=== PATIENT | female | born 1965 | race Caucasian/White ===

== ENCOUNTER 2023-02-19 15:30 | Outpatient (CLI) | payer BC, SELFPAY ==
[2023-02-19 15:55] VITALS: BP 129/75; PULSE 76; RESP 16
[2023-02-19 16:15] VITALS: BP 121/72; PULSE 70; RESP 16
== END 2023-02-19 16:25 | disposition home or self-care (01) ==
LOC: INF 15:32
PROVIDERS: PCP Family Medicine; Visit Provider Internal Medicine Medical Oncology
DX: K91.2 Postsurgical malabsorption, not elsewhere classified (principal); D50.8 Other iron deficiency anemias
CPT/HCPCS: 96374; Q0138

== ENCOUNTER 2023-02-24 09:53 | Outpatient (CLI) | payer BC, SELFPAY ==
[2023-02-24 10:15] VITALS: BP 124/75; PULSE 81; RESP 18; TEMP 36.8; O2SAT 98
[2023-02-24] MEDS: SODIUM CHLORIDE 0.9% 10ML FLUSH SYRINGE 10 ML IV (10:15)
[2023-02-24] MEDS: ferumoxytoL 510 MG in 0.9 % SODIUM CHLORIDE 50 ML 268 MG IV (10:15)
[2023-02-24] MEDS: SODIUM CHLORIDE 0.9% 50ML BAG 50 ML IV (10:15)
[2023-02-24 10:30] VITALS: BP 131/74; PULSE 78; O2SAT 98
== END 2023-02-24 10:40 | disposition home or self-care (01) ==
LOC: INF 09:53
PROVIDERS: PCP Family Medicine; Visit Provider Internal Medicine Hospice and Palliative Medicine
DX: D50.8 Other iron deficiency anemias (principal)
CPT/HCPCS: 96374; Q0138